=== PATIENT | male | born 1985 | race Caucasian/White ===

== ENCOUNTER 2017-03-14 13:46 | Emergency (ER) | payer BC ==
[2017-03-14] MEDS ORDERED: Ketorolac 30 MG/ML SDV IVPUSH ONE (14:22)
[2017-03-14] MEDS ORDERED: Aluminum Hydroxide/Magnesium Hydroxide/Simethicone Susp 30 ML Cup PO ONE (14:22)
[2017-03-14] MEDS ORDERED: Famotidine 20 MG/2 ML SDV IVPUSH ONE (14:22)
--- NOTE | 2017-03-14 15:29 | CR ---
Chest: Portable view of the chest was obtained. Comparison: Previous chest x-ray of 07/24/11. Heart size and mediastinum are within normal limits for portable technique. Lungs are clear. Bony structures are grossly intact. Impression: 1. Nothing acute is identified on portable chest x-ray. Diagnostic code #1
--- NOTE | 2017-03-14 15:39 | EDM.PDOC ---
ED HPI GENERAL MEDICAL PROBLEM - General Chief Complaint: Chest Pain Stated Complaint: [facility] Time Seen by Provider: 03/14/17 13:56 Source of Information: Reports: Patient History Limitations: Reports: No Limitations - History of Present Illness INITIAL COMMENTS - FREE TEXT/NARRATIVE: 31 y/o M sent here from [facility] for "heart attack" per their EKG. Patient states he's had chest pain x 2 days. Gradual onset, substernal, sharp/burning, radiates to back, moderate severity. Better when sitting up/ leaning forward. Worse when lying flat. Thought it might be heartburn but antacids didn't help. Pain has been constant though waxing/waning. No cough/ SOB. No fever/recent illness. No trauma. Mild nausea, no vomiting. No abd pain. No history of similar symptoms. Seen at walk in clinic where EKG was abnormal and patient was told he was having heart attack and transported here by EMS. He has received aspirin. 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 Chest Pain Score (Numeric/FACES): 2 - Related Data Allergies Allergy/AdvReac Type Severity Reaction Status Date / Time acetaminophen [From Tavist] Allergy Cannot Verified 03/14/17 13:49 Remember clemastine [From Tavist] Allergy Cannot Verified 03/14/17 13:49 Remember diphenhydramine Allergy Hives Verified 03/14/17 13:49 [From Benadryl] pseudoephedrine [From Tavist] Allergy Cannot Verified 03/14/17 13:49 Remember Home Meds: Home Meds Colchicine 0.6 mg PO BID 120 Days #240 capsule 03/14/17 [Rx] Ibuprofen [IJD: Ibuprofen] 800 mg PO TIDMEALS #60 tab 03/14/17 [Rx] Sertraline [Zoloft] 50 mg PO DAILY 03/14/17 [History] Past Medical History Respiratory History: Reports: Asthma Other Respiratory History: allergry induces asthma Gastrointestinal History: Reports: GERD - Past Surgical History HEENT Surgical History: Reports: Adenoidectomy, Tonsillectomy, Other (See Below) Musculoskeletal Surgical History: Reports: Arthroscopic Knee Social & Family History - Tobacco Use Smoking Status *Q: Never Smoker Second Hand Smoke Exposure: No - Caffeine Use Caffeine Use: Reports: Coffee - Recreational Drug Use Recreational Drug Use: No ED ROS GENERAL - Review of Systems Review Of Systems: See Below Constitutional: Denies: Fever HEENT: Reports: No Symptoms Respiratory: Denies: Shortness of Breath, Cough Cardiovascular: Reports: Chest Pain GI/Abdominal: Denies: Abdominal Pain Musculoskeletal: Reports: No Symptoms ED EXAM, GENERAL - Physical Exam Exam: See Below Exam Limited By: No Limitations General Appearance: Alert, WD/WN, No Apparent Distress, Anxious Ears: Normal External Exam Nose: Normal Inspection Throat/Mouth: Normal Inspection, Normal Voice, No Airway Compromise Head: Atraumatic, Normocephalic Neck: Normal Inspection, Supple, Non-Tender, Full Range of Motion Respiratory/Chest: No Respiratory Distress, Lungs Clear, Normal Breath Sounds, No Accessory Muscle Use, Chest Non-Tender Cardiovascular: Normal Peripheral Pulses, Regular Rate, Rhythm, No Edema, No Murmur GI/Abdominal: Soft, Non-Tender, No Distention. No: Rebound Back Exam: Normal Inspection Extremities: Normal Inspection, No Pedal Edema. No: Leg Pain, Increased Warmth Neurological: Alert, Oriented, Normal Cognition, No Motor/Sensory Deficits Psychiatric: Normal Affect, Normal Mood Skin Exam: Warm, Dry, Intact, Normal Color, No Rash Course - Vital Signs Last Recorded V/S: Last Vital Signs Temp 36.7 C 03/14/17 13:50 Pulse 90 03/14/17 16:43 Resp 18 03/14/17 16:43 BP 121/80 03/14/17 16:43 Pulse Ox 99 03/14/17 16:43 - Orders/Labs/Meds Orders: Active Orders 24 hr Category Date Time Status EKG 12 Lead [EK] Stat Ther 03/14/17 14:51 Ordered Labs: Laboratory Tests 03/14/17 03/14/17 03/14/17 Range/Units 14:50 14:50 14:50 WBC 11.77 H (4.23-9.07) K/mm3 RBC 4.95 (4.63-6.08) M/mm3 Hgb 15.5 (13.7-17.5) gm/L Hct 44.0 (40.1-51.0) % MCV 88.9 (79.0-92.2) fl MCH 31.3 (25.7-32.2) pg MCHC 35.2 (32.2-35.5) g/dl RDW Std Deviation 39.0 (35.1-43.9) fL Plt Count 232 (163-337) K/mm3 MPV 10.1 (9.4-12.3) fl Neut % (Auto) 80.1 H (34.0-67.9) % Lymph % (Auto) 9.3 L (21.8-53.1) % Ralls % (Auto) 9.9 (5.3-12.2) % Eos % (Auto) 0.3 L (0.8-7.0) Baso % (Auto) 0.2 (0.1-1.2) % Neut # (Auto) 9.44 H (1.78-5.38) K/mm3 Lymph # (Auto) 1.09 L (1.32-3.57) K/mm3 Ralls # (Auto) 1.16 H (0.30-0.82) K/mm3 Eos # (Auto) 0.04 (0.04-0.54) K/mm3 Baso # (Auto) 0.02 (0.01-0.08) K/mm3 Manual Slide Review Normal smear D-Dimer, Quantitative 0.19 (0.19-0.59) mg/L Sodium 139 (136-145) mEq/L Potassium 3.9 (3.5-5.1) mEq/L Chloride 102 (98-107) mEq/L Carbon Dioxide 26 (21-32) mEq/L Anion Gap 14.9 (5-15) BUN 16 (7-18) mg/dL Creatinine 1.0 (0.7-1.3) mg/dL Est Cr Clr Drug Dosing 111.90 mL/min Estimated GFR (MDRD) > 60 (>60) mL/min BUN/Creatinine Ratio 16.0 (14-18) Glucose 105 (74-106) mg/dL Calcium 9.4 (8.5-10.1) mg/dL Total Bilirubin 0.6 (0.2-1.0) mg/dL AST 12 L (15-37) U/L ALT 20 (16-63) U/L Alkaline Phosphatase 65 (46-116) U/L Troponin I < 0.017 (0.00-0.056) ng/mL Total Protein 7.6 (6.4-8.2) g/dl Albumin 4.0 (3.4-5.0) g/dl Globulin 3.6 gm/dL Albumin/Globulin Ratio 1.1 (1-2) Lipase 146 (73-393) U/L Meds: Medications Discontinued Medications Generic Name Dose Route Start Last Admin Trade Name Arnulfo PRN Reason Stop Dose Admin Al Hydroxide/Mg Hydroxide 30 ml 03/14/17 14:22 03/14/17 14:29 Mag-Al Plus PO 03/14/17 14:23 30 ml ONETIME ONE Administration Famotidine 40 mg 03/14/17 14:22 03/14/17 14:31 Pepcid IVPUSH 03/14/17 14:23 40 mg ONETIME ONE Administration Ketorolac Tromethamine 30 mg 03/14/17 14:22 03/14/17 14:29 Toradol IVPUSH 03/14/17 14:23 30 mg ONETIME ONE Administration - Re-Assessments/Exams Free Text/Narrative Re-Assessment/Exam: 03/14/17 15:38 EKG shows subtle <1mm ST elevation throughout with SD depression diffusely as well. Pattern is much more suggestive of pericarditis rather than ischemia. Enzymes ordered but doubt ACS. D-dimer neg. CXR shows no acute abnormality. 03/14/17 17:16 No clinical signs or symptoms of heart failure. Bedside u/s w/ suboptimal views but no definite cardiac effusion. Labs normal. Hx/EKG very suggestive of pericarditis. Will treat with NSAIDs and colchicine, discussed strict return precautions and need for f/u, PCP may refer for formal echo as needed. Departure - Departure Time of Disposition: 16:10 Disposition: Home, Self-Care 01 Clinical Impression: Pericarditis Qualifiers: Pericarditis type: idiopathic Chronicity: acute Qualified Code(s): I30.0 - Acute nonspecific idiopathic pericarditis Prescriptions: Colchicine 0.6 mg PO BID 120 Days #240 capsule Ibuprofen [IJD: Ibuprofen] 800 mg PO TIDMEALS #60 tab Instructions: Pericarditis Referrals: PCP,Not In Area [Primary Care Provider] - Forms: ED Department Discharge, ED Return to Work/School Form Additional Instructions: 1. Take colchicine as prescribed for your probable pericarditis 2. Take ibuprofen prescribed, ideally for 2 weeks. You make take it after that as needed for pain. 3. Follow up with a primary doctor as soon as possible for further care. Your primary doctor may want to order an echocardiogram (ultrasound of the heart) depending on how you are doing. 4. Return to the ED if you have severe chest pain, shortness of breath, leg swelling, or any other concerning symptoms. - My Orders Last 24 Hours: My Active Orders 03/14/17 14:51 EKG 12 Lead [EK] Stat - Assessment/Plan Last 24 Hours: My Active Orders 03/14/17 14:51 EKG 12 Lead [EK] Stat
[2017-03-14 16:43] VITALS: BP 121/80
== END 2017-03-14 16:35 | disposition home or self-care (01) ==
LOC: JD.ED 13:46
DX: I30.0 Acute nonspecific idiopathic pericarditis (principal); Z88.8 Allergy status to other drugs, medicaments and biological substances
CPT/HCPCS: 36415; 71010; 80053; 83690; 84484; 85025; 85379; 93005; 96374; 96375; 99285; A9270; J1885

== ENCOUNTER 2017-07-22 08:44 | Emergency (ER) | payer BC ==
[2017-07-22 08:53] VITALS: BP 150/99
[2017-07-22] MEDS ORDERED: Sodium Chloride 0.9% 10 ML Syringe FLUSH PRN (09:05)
[2017-07-22] MEDS ORDERED: Aspirin 81 MG Tab.Chew PO ONE (09:20)
[2017-07-22] MEDS ORDERED: Famotidine 20 MG/2 ML SDV IVPUSH ONE (09:26)
--- NOTE | 2017-07-22 10:04 | EDM.PDOC ---
ED HPI GENERAL MEDICAL PROBLEM - General Chief Complaint: Chest Pain Stated Complaint: CHEST PAIN Time Seen by Provider: 07/22/17 09:05 Source of Information: Reports: Patient, RN Notes Reviewed - History of Present Illness INITIAL COMMENTS - FREE TEXT/NARRATIVE: 31-year-old male comes in with anterior chest discomfort that started 2 days ago. He does have achy and burning anterior chest discomfort worse with deep breathing and worse lying flat that started out very mild 2 days ago and now more bothersome during the night and this morning. As long as he sits somewhat upright the discomfort is not bad but he still does feel some discomfort with deep breathing. He did have a sinus infection that started about a week or 10 days ago. He is just finishing a course of antibiotics for that and also has been on a course of prednisone. His nasal and sinus congestion is better at this time. He was coughing more and that also is now much improved with just very infrequent coughing the last day or 2. He is felt more fatigued for the last 2 days. He has not been short of breath. No abdominal pain nausea vomiting. No headache fever or chills. Of note he had very similar symptoms last February about 4 months ago and was diagnosed with pericarditis at that time. He states it did take about 2 weeks for symptoms to resolve. He did have a follow-up echocardiogram he believes last March or April which was "normal". He is not diabetic. He has no known history for hypertension, coronary artery disease or diabetes. Chest Pain Score (Numeric/FACES): 4 - Related Data Allergies Allergy/AdvReac Type Severity Reaction Status Date / Time acetaminophen [From Tavist] Allergy Cannot Verified 07/22/17 08:48 Remember clemastine [From Tavist] Allergy Cannot Verified 07/22/17 08:48 Remember diphenhydramine Allergy Hives Verified 07/22/17 08:48 [From Benadryl] pseudoephedrine [From Tavist] Allergy Cannot Verified 07/22/17 08:48 Remember Home Meds: Home Meds Colchicine 0.6 mg PO BID 120 Days #240 capsule 03/14/17 [Rx] Ibuprofen [IJD: Ibuprofen] 800 mg PO TIDMEALS #60 tab 03/14/17 [Rx] Sertraline [Zoloft] 50 mg PO DAILY 03/14/17 [History] Ibuprofen [Motrin] 800 mg PO TID #40 tablet 07/22/17 [Rx] Omeprazole 40 mg PO DAILY #20 cap.sr 07/22/17 [Rx] Past Medical History Respiratory History: Reports: Asthma Other Respiratory History: allergry induces asthma Gastrointestinal History: Reports: GERD - Past Surgical History HEENT Surgical History: Reports: Adenoidectomy, Naso-Sinus Surgery, Tonsillectomy, Other (See Below) Other HEENT Surgeries/Procedures: sinus surgery June Musculoskeletal Surgical History: Reports: Arthroscopic Knee Social & Family History - Family History Family Medical History: Noncontributory - Tobacco Use Smoking Status *Q: Never Smoker Second Hand Smoke Exposure: No - Caffeine Use Caffeine Use: Reports: Coffee - Recreational Drug Use Recreational Drug Use: No ED ROS GENERAL - Review of Systems Review Of Systems: See Below Constitutional: Denies: Fever, Chills, Diaphoresis HEENT: Denies: Throat Pain Respiratory: Reports: Pleuritic Chest Pain (Worse lying flat), Cough. Denies: Shortness of Breath, Wheezing, Sputum (Area occasional) Cardiovascular: Reports: Chest Pain (Anterior chest discomfort worse with deep breathing, worse when lying flat) GI/Abdominal: Denies: Abdominal Pain, Nausea, Vomiting Musculoskeletal: Denies: Neck Pain, Shoulder Pain, Arm Pain, Leg Pain Skin: Reports: No Symptoms Neurological: Reports: Dizziness (Mild). Denies: Numbness, Tingling, Weakness ED EXAM, GENERAL - Physical Exam Exam: See Below General Appearance: Alert, No Apparent Distress Eye Exam: Bilateral Eye: PERRL Nose: Normal Inspection Throat/Mouth: Normal Inspection, Normal Oropharynx Head: Atraumatic. No: Facial Swelling Neck: Supple, Full Range of Motion Respiratory/Chest: No Respiratory Distress, Lungs Clear, Normal Breath Sounds, Chest Non-Tender Cardiovascular: Tachycardia GI/Abdominal: Soft, Non-Tender Back Exam: Normal Inspection. No: CVA Tenderness (L), CVA Tenderness (R) Extremities: Normal Inspection. No: Pedal Edema, Leg Pain Neurological: Alert, Oriented, No Motor/Sensory Deficits Skin Exam: Warm, Dry, Normal Color Course - Vital Signs Last Recorded V/S: Last Vital Signs Temp 96.5 F 07/22/17 08:49 Pulse 106 H 07/22/17 08:49 Resp 18 07/22/17 08:49 BP 150/99 H 07/22/17 08:49 Pulse Ox 98 07/22/17 08:49 - Orders/Labs/Meds Orders: Active Orders 24 hr Category Date Time Status EKG 12 Lead [EKG Documentation Completion] [] STAT Care 07/22/17 09:05 Active Peripheral IV Care [RC] . DIRECTED Care 07/22/17 09:06 Active Sodium Chloride 0.9% [Saline Flush] Med 07/22/17 09:05 Active 10 ml FLUSH ASDIRECTED PRN Peripheral IV Insertion Adult [OM.PC] Stat Oth 07/22/17 09:05 Ordered Medication Orders Sodium Chloride (Saline Flush) 10 ml FLUSH ASDIRECTED PRN PRN Reason: Keep Vein Open Last Admin: 07/22/17 09:27 Dose: 10 ml Labs: Laboratory Tests 07/22/17 07/22/17 07/22/17 Range/Units 08:53 08:53 08:53 WBC 12.21 H (4.23-9.07) K/mm3 RBC 5.39 (4.63-6.08) M/mm3 Hgb 16.6 (13.7-17.5) gm/L Hct 48.6 (40.1-51.0) % MCV 90.2 (79.0-92.2) fl MCH 30.8 (25.7-32.2) pg MCHC 34.2 (32.2-35.5) g/dl RDW Std Deviation 39.3 (35.1-43.9) fL Plt Count 257 (163-337) K/mm3 MPV 10.4 (9.4-12.3) fl Neut % (Auto) 70.4 H (34.0-67.9) % Lymph % (Auto) 17.3 L (21.8-53.1) % Fisher % (Auto) 11.4 (5.3-12.2) % Eos % (Auto) 0.3 L (0.8-7.0) Baso % (Auto) 0.2 (0.1-1.2) % Neut # (Auto) 8.59 H (1.78-5.38) K/mm3 Lymph # (Auto) 2.11 (1.32-3.57) K/mm3 Fisher # (Auto) 1.39 H (0.30-0.82) K/mm3 Eos # (Auto) 0.04 (0.04-0.54) K/mm3 Baso # (Auto) 0.03 (0.01-0.08) K/mm3 ESR 14 (0-15) mm/hr D-Dimer, Quantitative (0.19-0.59) mg/L Sodium 140 (136-145) mEq/L Potassium 4.1 (3.5-5.1) mEq/L Chloride 103 (98-107) mEq/L Carbon Dioxide 28 (21-32) mEq/L Anion Gap 13.1 (5-15) BUN 16 (7-18) mg/dL Creatinine 1.1 (0.7-1.3) mg/dL Est Cr Clr Drug Dosing 101.73 mL/min Estimated GFR (MDRD) > 60 (>60) mL/min BUN/Creatinine Ratio 14.5 (14-18) Glucose 101 (74-106) mg/dL Calcium 10.1 (8.5-10.1) mg/dL Total Bilirubin 0.6 (0.2-1.0) mg/dL AST 14 L (15-37) U/L ALT 28 (16-63) U/L Alkaline Phosphatase 83 (46-116) U/L Troponin I < 0.017 (0.00-0.056) ng/mL C-Reactive Protein (<1.0) mg/dL Total Protein 8.3 H (6.4-8.2) g/dl Albumin 4.5 (3.4-5.0) g/dl Globulin 3.8 gm/dL Albumin/Globulin Ratio 1.2 (1-2) 07/22/17 07/22/17 07/22/17 Range/Units 08:53 08:53 12:18 WBC (4.23-9.07) K/mm3 RBC (4.63-6.08) M/mm3 Hgb (13.7-17.5) gm/L Hct (40.1-51.0) % MCV (79.0-92.2) fl MCH (25.7-32.2) pg MCHC (32.2-35.5) g/dl RDW Std Deviation (35.1-43.9) fL Plt Count (163-337) K/mm3 MPV (9.4-12.3) fl Neut % (Auto) (34.0-67.9) % Lymph % (Auto) (21.8-53.1) % Fisher % (Auto) (5.3-12.2) % Eos % (Auto) (0.8-7.0) Baso % (Auto) (0.1-1.2) % Neut # (Auto) (1.78-5.38) K/mm3 Lymph # (Auto) (1.32-3.57) K/mm3 Fisher # (Auto) (0.30-0.82) K/mm3 Eos # (Auto) (0.04-0.54) K/mm3 Baso # (Auto) (0.01-0.08) K/mm3 ESR (0-15) mm/hr D-Dimer, Quantitative < 0.19 L (0.19-0.59) mg/L Sodium (136-145) mEq/L Potassium (3.5-5.1) mEq/L Chloride (98-107) mEq/L Carbon Dioxide (21-32) mEq/L Anion Gap (5-15) BUN (7-18) mg/dL Creatinine (0.7-1.3) mg/dL Est Cr Clr Drug Dosing mL/min Estimated GFR (MDRD) (>60) mL/min BUN/Creatinine Ratio (14-18) Glucose (74-106) mg/dL Calcium (8.5-10.1) mg/dL Total Bilirubin (0.2-1.0) mg/dL AST (15-37) U/L ALT (16-63) U/L Alkaline Phosphatase (46-116) U/L Troponin I < 0.017 (0.00-0.056) ng/mL C-Reactive Protein 1.5 H* (<1.0) mg/dL Total Protein (6.4-8.2) g/dl Albumin (3.4-5.0) g/dl Globulin gm/dL Albumin/Globulin Ratio (1-2) Meds: Medications Generic Name Dose Route Start Last Admin Trade Name Freq PRN Reason Stop Dose Admin Sodium Chloride 10 ml 07/22/17 09:05 07/22/17 09:27 Saline Flush FLUSH 10 ml ASDIRECTED PRN Administration Keep Vein Open Discontinued Medications Generic Name Dose Route Start Last Admin Trade Name Arnulfo PRN Reason Stop Dose Admin Aspirin 324 mg 07/22/17 09:20 07/22/17 09:27 Aspirin PO 07/22/17 09:21 324 mg ONETIME ONE Administration Al Hydroxide/Mg Hydroxide 30 0 ml 07/22/17 13:17 07/22/17 13:24 ml/ Lidocaine HCl 15 ml PO 07/22/17 13:18 45 ml ONETIME ONE Administration Famotidine 20 mg 07/22/17 09:26 07/22/17 09:33 Pepcid IVPUSH 07/22/17 09:27 20 mg ONETIME ONE Administration Sodium Chloride 500 mls @ 999 mls/hr 07/22/17 11:30 07/22/17 11:36 Normal Saline IV 07/22/17 12:00 999 mls/hr .BOLUS ONE Administration Sodium Chloride Confirm 07/22/17 11:35 07/22/17 11:37 Normal Saline Administered 07/22/17 11:36 Not Given Dose 1,000 mls @ as directed .ROUTE .[facility] ONE - Re-Assessments/Exams Free Text/Narrative Re-Assessment/Exam: 07/22/17 10:11 Blood counts come back mildly elevated 12,200, reactive protein 1.5. Troponin is normal. EEG does show ST elevation in the anterior inferior and lateral leads about identical to EKG of last March 10. We have given aspirin 324 by mouth. He is resting and breathing comfortably. He states he did take one tablet of colchicine this morning prior to coming in because the symptoms do seem so similar to what he had last February. 07/22/17 14:05. Repeat troponin did come back negative, I did also check a d- dimer and that was negative. Chest x-ray was normal with no apparent cardiomegaly, no pleural effusion or other apparent abnormality. Sedimentation rate did come back high normal at 14. We will start him on Motrin 800 mg 3 times a day. He did take a colchicine this past morning, will have him continue on colchicine 0.6 mg twice a day. Have written order for outpatient cardiac ultrasound. Discharge instructions as documented. Departure - Departure Time of Disposition: 13:48 Disposition: Home, Self-Care 01 Condition: Fair Clinical Impression: Pericarditis Qualifiers: Pericarditis type: idiopathic Chronicity: acute Qualified Code(s): I30.0 - Acute nonspecific idiopathic pericarditis Prescriptions: Ibuprofen [Motrin] 800 mg PO TID #40 tablet Omeprazole 40 mg PO DAILY #20 cap.sr Instructions: Pericarditis Referrals: Du Power MD [Primary Care Provider] - Forms: ED Department Discharge Additional Instructions: Rest, Motrin 800 mg 3 times daily for 2 weeks, Omeprazole 40 mg daily to help protect your stomach, be sure to take Motrin with food, drink plenty of water to maintain hydration when taking that medication on a regular repetitive basis. Colchicine 0.6 mg twice daily for 1-3 months. Let your regular provider and [employer] help you determine total duration of treatment. Follow-up with your regular medical provider this week, next available appointment. Cardiac echocardiogram will be scheduled prior to your leaving the emergency department today. Return to ED as needed if symptoms worsening in any way. - My Orders Last 24 Hours: My Active Orders 07/22/17 09:05 EKG 12 Lead [EKG Documentation Completion] [RC] STAT Sodium Chloride 0.9% [Saline Flush] 10 ml FLUSH ASDIRECTED PRN Peripheral IV Insertion Adult [OM.PC] Stat 07/22/17 09:06 Peripheral IV Care [RC] . DIRECTED - Assessment/Plan Last 24 Hours: My Active Orders 07/22/17 09:05 EKG 12 Lead [EKG Documentation Completion] [RC] STAT Sodium Chloride 0.9% [Saline Flush] 10 ml FLUSH ASDIRECTED PRN Peripheral IV Insertion Adult [OM.PC] Stat 07/22/17 09:06 Peripheral IV Care [RC] . DIRECTED
--- NOTE | 2017-07-22 10:22 | CR ---
Chest: Portable view of the chest was obtained. Comparison: Prior chest x-ray of 03/14/17. Heart size and mediastinum are normal. Lungs are clear. Minimal scoliosis is noted within the spine. Impression: 1. Nothing acute is seen on portable chest x-ray. Diagnostic code #1
[2017-07-22] MEDS ORDERED: Sodium Chloride 0.9% 500 ML IV ONE (11:30)
[2017-07-22] MEDS ORDERED: Sodium Chloride 0.9% 1,000 ML ONE (11:35)
[2017-07-22] MEDS ORDERED: Alum Hydrox/Mag Hydrox/Simeth 30 ML, Lidocaine 2% 15 ML PO ONE ×2 (13:17)
== END 2017-07-22 14:30 | disposition home or self-care (01) ==
LOC: JD.ED 08:44
DX: I30.0 Acute nonspecific idiopathic pericarditis (principal); Z88.6 Allergy status to analgesic agent; Z88.1 Allergy status to other antibiotic agents; Z79.899 Other long term (current) drug therapy
CPT/HCPCS: 36415; 71045; 80053; 84484; 85025; 85379; 85652; 86140; 93005; 96374; 99285; A9270; J7040; J7050; 93010